=== PATIENT | male | born 1955 | race Caucasian/White ===

== ENCOUNTER 2021-09-28 12:25 | Outpatient (CLI) | payer OTHER, SELFPAY ==
[2021-09-28 12:41] VITALS: BP 143/72; PULSE 64; RESP 18; TEMP 36.4; O2SAT 98; BMI 34.2
[2021-09-28] MEDS: 0.9% Saline Lock 10 ML Syringe IV (12:41)
[2021-09-28 13:12] VITALS: BP 117/66; RESP 16; TEMP 36.8; O2SAT 98
[2021-09-28 13:59] VITALS: BP 130/68; PULSE 56; RESP 16; TEMP 36.7; O2SAT 99
== END 2021-09-28 14:12 | disposition home or self-care (01) ==
LOC: MS3OUT 12:25 → MS3 12:26
PROVIDERS: PCP Family Medicine; Referring Provider Nurse Practitioner Adult Health; Visit Provider Nurse Practitioner Adult Health
DX: U07.1 COVID-19 (principal)
CPT/HCPCS: J7050; M0245; Q0245; A4216